=== PATIENT | female | born 1965 | race American Indian/Alaskan Native ===

== ENCOUNTER 2016-07-20 16:34 | Emergency (ER) | payer MEDICAID ==
[2016-07-20 16:53] VITALS: BP 141/91
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
[2016-07-20] MEDS ORDERED: TYLENOL PO ONE (18:11)
[2016-07-20 19:12] LABS: Hematocrit 42.9 % (30.3-42.9); Hemoglobin 14.3 gm/dl (10.1-14.3); Mean Corpuscular HGB Conc 33 % (30-34); Mean Corpuscular Hemoglobin 28 pg (28-32); Mean Corpuscular Volume 84 fl (79-97); Platelet Count 236 K/mm3 (140-440); Red Blood Count 5.14 M/mm3 (3.65-5.03); Red Cell Distribution Width 15.8 % (13.2-15.2); White Blood Count 12.2 K/mm3 (4.5-11.0)
[2016-07-20 19:35] LABS: Alanine Aminotransferase 17 units/L (7-56); Albumin 4.3 g/dL (3.9-5); Alkaline Phosphatase 80 units/L (35-129); Anion Gap 20 mmol/L; BUN/Creatinine Ratio 17.27; Bilirubin,Total 0.2 mg/dL (0.1-1.2); Blood Urea Nitrogen 19 mg/dL (7-17); Calcium 9.4 mg/dL (8.4-10.2); Carbon Dioxide 25 mmol/L (22-30); Chloride 95.6 mmol/L (98-107); Glucose 104 mg/dL (65-100); Potassium 3.8 mmol/L (3.6-5.0); Sodium 137 mmol/L (137-145); Total Protein 8.6 g/dL (6.3-8.2)
[2016-07-20 19:44] LABS: Bilirubin,Urine NEG (Negative); Blood,Urine SM (Negative); Ketones,Urine NEG (Negative); Leukocyte Esterase,Urine NEG (Negative); Mucus,Urine FEW /HPF; Nitrite,Urine NEG (Negative); Protein,Urine <15 mg/dL mg/dL (Negative); Urobilinogen,Urine < 2.0 mg/dL (<2.0)
[2016-07-20] MEDS ORDERED: TORADOL IM ONE (21:23)
[2016-07-20] MEDS ORDERED: DILAUDID IM ONE (21:23)
[2016-07-20] MEDS ORDERED: ZOFRAN IM ONE (21:23)
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
[2016-07-20] MEDS ORDERED: TYLENOL ONE (21:48)
== END 2016-07-20 22:30 | disposition home or self-care (01) ==
LOC: ED 16:34
DX: I10 Essential (primary) hypertension (principal); G43.909 Migraine, unspecified, not intractable, without status migrainosus; M54.5 Low back pain; G89.29 Other chronic pain; E78.00 Pure hypercholesterolemia, unspecified; Z87.891 Personal history of nicotine dependence; Z98.51 Tubal ligation status
CPT/HCPCS: 36415; 80053; 81001; 85027; 96372; 99283; J1170; J1885; J2405

== ENCOUNTER 2017-02-20 09:54 | Emergency (ER) | payer MEDICAID ==
[2017-02-20 10:08] VITALS: BP 151/69
[2017-02-20] MEDS ORDERED: TORADOL IM ONE (12:16)
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
[2017-02-20 12:49] LABS: Bacteria,Urine 1+ /HPF (Negative); Bilirubin,Urine NEG (Negative); Blood,Urine NEG (Negative); Ketones,Urine NEG (Negative); Leukocyte Esterase,Urine NEG (Negative); Mucus,Urine FEW /HPF; Nitrite,Urine NEG (Negative); Protein,Urine <15 mg/dL mg/dL (Negative); Urobilinogen,Urine < 2.0 mg/dL (<2.0)
== END 2017-02-20 13:23 | disposition home or self-care (01) ==
LOC: ED 09:54
DX: S39.012A Strain of muscle, fascia and tendon of lower back, initial encounter (principal); I10 Essential (primary) hypertension; G43.909 Migraine, unspecified, not intractable, without status migrainosus; E78.00 Pure hypercholesterolemia, unspecified; F17.200 Nicotine dependence, unspecified, uncomplicated
CPT/HCPCS: 81001; 96372; 99283; J1885

== ENCOUNTER 2022-01-05 19:32 | Inpatient (IN) | payer MEDICAID ==
--- NOTE | 2022-01-05 20:25 | Event Note ---
Date: 01/05/22 Medical screening examination note 56-year-old female, with a body mass index of 44, who is not COVID-19 vaccinated, presenting with painless shortness of breath. She has chronic loss of taste and smell. Nursing team reports the patient is hypoxic to 88%. She is saturating at 93 to 96% on 2 to 3 L of supplemental O2. 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 Detailed history and physical to be performed by oncoming provider Vital Signs 01/05/22 19:52 Temperature 98.7 F Pulse Rate 81 Respiratory 18 Rate Blood Pressure 140/63 O2 Sat by Pulse 92 Oximetry
--- NOTE | 2022-01-05 20:52 | Emergency Department Report ---
ED Shortness of Breath HPI - General Chief Complaint: Dyspnea/Respdistress Stated Complaint: SOB/BODY ACHES Time Seen by Provider: 01/05/22 20:35 Source: patient Mode of arrival: Ambulatory Limitations: No Limitations - History of Present Illness Initial Comments: 56-year-old -Iraqi female, smoker, complains of increased shortness of breath and wheezing. Reports she having yellow productive sputum. Has body aches. MD Complaint: shortness of breath, cough -: Gradual, days(s) (3) Radiation: back Quality: dull Consistency: intermittent Improves With: nothing, bronchodilators, upright position Worsens With: lying flat, exertion Context: smoke/fume exposure Associated Symptoms: cough, sputum production - Related Data Home Oxygen Therapy: No Previous Rx's Medication Instructions Recorded Last Taken Type Fluticasone Propionate [Flonase] 2 spray NS QDAY #1 spray.susp 10/20/13 Unknown Rx HYDROcodone/APAP 10-325 [[place] 1 each PO Q6HR PRN #14 tablet 10/20/13 Unknown Rx 10/325] hydroCHLOROthiazide [Hctz] 25 mg PO QDAY #30 tablet 10/20/13 Unknown Rx Butalbit/Acetamin/Caff/Codeine 1 cap PO Q8HR PRN #15 cap 02/16/16 Unknown Rx [Fioricet/Codeine 00-140-04-30] Gentamicin 0.3% Ophth Oint 1 applicatio OP Q4H #1 tube 02/16/16 Unknown Rx oxyCODONE /ACETAMINOPHEN [Percocet 1 tab PO Q6HR PRN #20 tablet 07/20/16 Unknown Rx 5/325 mg] Cyclobenzaprine [Flexeril] 10 mg PO TID PRN #15 tablet 02/20/17 Unknown Rx Ibuprofen [Motrin 600 MG tab] 600 mg PO Q8H PRN #30 tablet 02/20/17 Unknown Rx traMADoL [Ultram] 50 mg PO Q6HR PRN #6 tablet 02/20/17 Unknown Rx Ketorolac [Toradol] 10 mg PO Q6H PRN #20 tablet 04/29/18 Unknown Rx Allergies Allergy/AdvReac Type Severity Reaction Status Date / Time No Known Allergies Allergy Unverified 07/20/16 17:06 ED Review of Systems ROS: Stated complaint: SOB/BODY ACHES Other details as noted in HPI Constitutional: see HPI Eyes: as per HPI ENT: as per HPI Respiratory: see HPI, cough, orthopnea, shortness of breath, SOB with exertion Cardiovascular: as per HPI Endocrine: no symptoms reported Gastrointestinal: as per HPI Genitourinary: as per HPI Musculoskeletal: as per HPI ED Past Medical Hx - Past Medical History Hx Hypertension: Yes (pt not sure) Hx Arthritis: Yes Hx Headaches / Migraines: Yes Additional medical history: high cholesterol - Surgical History Past Surgical History?: Yes Additional Surgical History: tubal ligation - Social History Smoking Status: Current Every Day Smoker - Medications Home Medications: Home Medications Medication Instructions Recorded Confirmed Last Taken Type Fluticasone Propionate [Flonase] 2 spray NS QDAY #1 spray.susp 10/20/13 11/11/13 Unknown Rx HYDROcodone/APAP 10-325 [[place] 1 each PO Q6HR PRN #14 tablet 10/20/13 11/11/13 Unknown Rx 10/325] hydroCHLOROthiazide [Hctz] 25 mg PO QDAY #30 tablet 10/20/13 11/11/13 Unknown Rx Butalbit/Acetamin/Caff/Codeine 1 cap PO Q8HR PRN #15 cap 02/16/16 Unknown Rx [Fioricet/Codeine 96-047-40-30] Gentamicin 0.3% Ophth Oint 1 applicatio OP Q4H #1 tube 02/16/16 Unknown Rx oxyCODONE /ACETAMINOPHEN [Percocet 1 tab PO Q6HR PRN #20 tablet 07/20/16 Unknown Rx 5/325 mg] Cyclobenzaprine [Flexeril] 10 mg PO TID PRN #15 tablet 02/20/17 Unknown Rx Ibuprofen [Motrin 600 MG tab] 600 mg PO Q8H PRN #30 tablet 02/20/17 Unknown Rx traMADoL [Ultram] 50 mg PO Q6HR PRN #6 tablet 02/20/17 Unknown Rx Ketorolac [Toradol] 10 mg PO Q6H PRN #20 tablet 04/29/18 Unknown Rx ED Physical Exam - General Limitations: No Limitations General appearance: alert, in no apparent distress - Head Head exam: Present: atraumatic, normocephalic - Eye Eye exam: Present: normal appearance, PERRL - ENT ENT exam: Present: mucous membranes moist - Neck Neck exam: Present: normal inspection - Respiratory Respiratory exam: Present: normal lung sounds bilaterally, wheezes, rhonchi. Absent: respiratory distress - Cardiovascular Cardiovascular Exam: Present: regular rate, normal rhythm. Absent: systolic murmur, diastolic murmur, rubs, gallop - GI/Abdominal GI/Abdominal exam: Present: soft, normal bowel sounds - Extremities Exam Extremities exam: Present: normal inspection - Back Exam Back exam: Present: normal inspection - Neurological Exam Neurological exam: Present: alert, oriented X3 - Psychiatric Psychiatric exam: Present: normal affect, normal mood - Skin Skin exam: Present: warm, dry, intact, normal color. Absent: rash ED Course Vital Signs 01/05/22 01/05/22 01/05/22 19:52 20:15 20:20 Temperature 98.7 F Pulse Rate 81 79 Respiratory 18 19 28 H Rate Blood Pressure 140/63 O2 Sat by Pulse 92 93 94 Oximetry 01/05/22 01/05/22 01/05/22 20:30 20:45 21:00 Temperature Pulse Rate 76 73 80 Respiratory 19 16 19 Rate Blood Pressure 127/70 126/61 110/64 O2 Sat by Pulse 90 95 88 Oximetry ED Medical Decision Making - Lab Data Result diagrams: 01/05/22 20:34 01/05/22 20:34 Critical care attestation.: If time is entered above; I have spent that time in minutes in the direct care of this critically ill patient, excluding procedure time. ED Disposition Clinical Impression: COPD exacerbation Pneumonia Qualifiers: Pneumonia type: due to unspecified organism Laterality: bilateral Lung location: unspecified part of lung Qualified Code(s): J18.9 - Pneumonia, unspecified organism Disposition: [address] [place] [address] Is pt being admited?: Yes Condition: Serious Instructions: Bacterial Pneumonia (ED), Chronic Obstructive Pulmonary Disease (ED)
--- NOTE | 2022-01-05 21:12 | XRay Report ---
CHEST 1 VIEW 01/05/2022 8:56 PM INDICATION / CLINICAL INFORMATION: COUGH. COMPARISON: 04/29/2018 FINDINGS: SUPPORT DEVICES: None. HEART / MEDIASTINUM: No significant abnormality. LUNGS / PLEURA: Patchy airspace opacities in bilateral lower lobes. No pneumothorax. ADDITIONAL FINDINGS: No significant additional findings. IMPRESSION: 1. Airspace opacities in bilateral lobe suggesting infectious process. Signer Name: David Ferrer DO Signed: 01/05/2022 9:08 PM Workstation Name: [id number]
[2022-01-05 21:25] LABS: Alanine Aminotransferase 11 units/L (7-56); Albumin 3.2 g/dL (3.9-5); BUN/Creatinine Ratio 16; Blood Urea Nitrogen 16 mg/dL (7-17); Calcium 8.7 mg/dL (8.4-10.2); Hemolysis Index 5
[2022-01-05 22:02] LABS: Basophils # (Auto) 0.1 K/mm3 (0.0-0.1); Basophils % (Auto) 0.4 % (0.0-1.8); Eosinophils # (Auto) 0.1 K/mm3 (0.0-0.4); Eosinophils % (Auto) 1.2 % (0.0-4.3); Hematocrit 32.4 % (30.3-42.9); Lymphocytes # (Auto) 1.7 K/mm3 (1.2-5.4); Lymphocytes % (Auto) 14.8 % (13.4-35.0); Mean Corpuscular HGB Conc 31 % (30-34); Mean Corpuscular Volume 82 fl (79-97); Monocytes # (Auto) 0.7 K/mm3 (0.0-0.8); Monocytes % (Auto) 6.2 % (0.0-7.3); Platelet Count 316 K/mm3 (140-440); Red Blood Count 3.97 M/mm3 (3.65-5.03); Red Cell Distribution Width 17.7 % (13.2-15.2)
[2022-01-05 22:42] LABS: INR 1.01 (0.87-1.13)
[2022-01-05] MEDS ORDERED: cefTRIAXone/NS 1 GM/50 ML 1 GM/50 ML BAG IV ONE (22:50)
[2022-01-05] MEDS ORDERED: AZITHROMYCIN/NS 500 MG/250 ML 500 MG/250 ML BAG IV ONE (22:51)
[2022-01-06] MEDS ORDERED: ACETAMINOPHEN 325 MG TAB PO PRN (02:16)
[2022-01-06] MEDS ORDERED: ALBUTEROL 2.5 MG/3 ML NEBU IH PRN ×2 (02:16→09:51)
[2022-01-06] MEDS ORDERED: ONDANSETRON 4 MG/2 ML INJ IV PRN (02:16)
[2022-01-06] MEDS ORDERED: CYCLOBENZAPRINE 10 MG TAB PO PRN (02:18)
--- NOTE | 2022-01-06 02:24 | History and Physical Report ---
History of Present Illness Date of examination: 01/06/22 Date of admission: 01/06/22 Chief complaint: Shortness of breath Coughing History of present illness: 56-year-old -Ivorian female with history of COPD and tobacco abuse was brought to the emergency room because of increased shortness of breath and wheezing. Patient also complaining of yellow productive sputum. Patient has body ache In the emergency room patient WBC is 11.6 and chest x-ray shows airspace opacities in the bilateral lobe suggesting infectious process. We are going to admit the patient we will put the patient on neb treatment, antibiotic with and steroid Past History Past Medical History: arthritis, COPD, hypertension, hyperlipidemia, other (Migraine headache) Past Surgical History: Other (Tubal ligation) Social history: smoking Family history: hypertension Medications and Allergies Allergies Allergy/AdvReac Type Severity Reaction Status Date / Time No Known Allergies Allergy Unverified 07/20/16 17:06 Home Medications Medication Instructions Recorded Confirmed Last Taken Type Fluticasone Propionate [Flonase] 2 spray NS QDAY #1 spray.susp 10/20/13 11/11/13 Unknown Rx HYDROcodone/APAP 10-325 [[place] 1 each PO Q6HR PRN #14 tablet 10/20/13 11/11/13 Unknown Rx 10/325] hydroCHLOROthiazide [Hctz] 25 mg PO QDAY #30 tablet 10/20/13 11/11/13 Unknown Rx Butalbit/Acetamin/Caff/Codeine 1 cap PO Q8HR PRN #15 cap 02/16/16 Unknown Rx [Fioricet/Codeine 83-841-00-30] Gentamicin 0.3% Ophth Oint 1 applicatio OP Q4H #1 tube 02/16/16 Unknown Rx oxyCODONE /ACETAMINOPHEN [Percocet 1 tab PO Q6HR PRN #20 tablet 07/20/16 Unknown Rx 5/325 mg] Cyclobenzaprine [Flexeril] 10 mg PO TID PRN #15 tablet 02/20/17 Unknown Rx Ibuprofen [Motrin 600 MG tab] 600 mg PO Q8H PRN #30 tablet 02/20/17 Unknown Rx traMADoL [Ultram] 50 mg PO Q6HR PRN #6 tablet 02/20/17 Unknown Rx Ketorolac [Toradol] 10 mg PO Q6H PRN #20 tablet 04/29/18 Unknown Rx Review of Systems All systems: negative Respiratory: cough, cough with sputum, shortness of breath, dyspnea on exertion, other (Body ache) Exam - Constitutional Vitals: Temp Pulse Resp BP Pulse Ox 98.7 F 81 26 H 68/40 86 01/05/22 19:52 01/05/22 23:16 01/05/22 23:16 01/06/22 02:01 01/06/22 02:01 General appearance: Present: no acute distress, well-nourished - EENT Eyes: Present: PERRL ENT: hearing intact, clear oral mucosa - Neck Neck: Present: supple, normal ROM - Respiratory Respiratory effort: normal Respiratory: bilateral: CTA - Cardiovascular Heart Sounds: Present: S1 & S2. Absent: rub, click - Extremities Extremities: pulses symmetrical, No edema Peripheral Pulses: within normal limits - Abdominal General gastrointestinal: Present: soft, non-tender, non-distended, normal bowel sounds Female genitourinary: Present: normal - Integumentary Integumentary: Present: clear, warm, dry - Musculoskeletal Musculoskeletal: gait normal, strength equal bilaterally - Psychiatric Psychiatric: appropriate mood/affect, intact judgment & insight - Neurologic Neurologic: CNII-XII intact, moves all extremities HEART Score - HEART Score Troponin: Troponin T < 0.010 ng/mL (0.00-0.029) 01/05/22 20:34 Results - Labs CBC & Chem 7: 01/05/22 20:34 01/05/22 20:34 Labs: Laboratory Last Values WBC 11.6 K/mm3 (4.5-11.0) H 01/05/22 20:34 RBC 3.97 M/mm3 (3.65-5.03) 01/05/22 20:34 Hgb 10.0 gm/dl (10.1-14.3) L 01/05/22 20:34 Hct 32.4 % (30.3-42.9) 01/05/22 20:34 MCV 82 fl (79-97) 01/05/22 20:34 MCH 25 pg (28-32) L 01/05/22 20:34 MCHC 31 % (30-34) 01/05/22 20:34 RDW 17.7 % (13.2-15.2) H 01/05/22 20:34 Plt Count 316 K/mm3 (140-440) 01/05/22 20:34 Lymph % (Auto) 14.8 % (13.4-35.0) 01/05/22 20:34 [place] % (Auto) 6.2 % (0.0-7.3) 01/05/22 20:34 Eos % (Auto) 1.2 % (0.0-4.3) 01/05/22 20:34 Baso % (Auto) 0.4 % (0.0-1.8) 01/05/22 20:34 Lymph # (Auto) 1.7 K/mm3 (1.2-5.4) 01/05/22 20:34 [place] # (Auto) 0.7 K/mm3 (0.0-0.8) 01/05/22 20:34 Eos # (Auto) 0.1 K/mm3 (0.0-0.4) 01/05/22 20:34 Baso # (Auto) 0.1 K/mm3 (0.0-0.1) 01/05/22 20:34 Seg Neutrophils % 77.4 % (40.0-70.0) H 01/05/22 20:34 Seg Neutrophils # 9.0 K/mm3 (1.8-7.7) H 01/05/22 20:34 PT 14.4 Sec. (12.2-14.9) 01/05/22 20:34 INR 1.01 (0.87-1.13) 01/05/22 20:34 Sodium 140 mmol/L (137-145) 01/05/22 20:34 Potassium 3.9 mmol/L (3.6-5.0) 01/05/22 20:34 Chloride 100.5 mmol/L (98-107) 01/05/22 20:34 Carbon Dioxide 26 mmol/L (22-30) 01/05/22 20:34 Anion Gap 17 mmol/L 01/05/22 20:34 BUN 16 mg/dL (7-17) 01/05/22 20:34 Creatinine 1.0 mg/dL (0.6-1.2) 01/05/22 20:34 Estimated GFR > 60 ml/min 01/05/22 20:34 BUN/Creatinine Ratio 16 % 01/05/22 20:34 Glucose 112 mg/dL (65-100) H 01/05/22 20:34 Calcium 8.7 mg/dL (8.4-10.2) 01/05/22 20:34 Magnesium 2.10 mg/dL (1.7-2.3) 01/05/22 20:34 Total Bilirubin 0.50 mg/dL (0.1-1.2) 01/05/22 20:34 AST 9 units/L (5-40) 01/05/22 20:34 ALT 11 units/L (7-56) 01/05/22 20:34 Alkaline Phosphatase 74 units/L (35-129) 01/05/22 20:34 Total Creatine Kinase 48 units/L (30-135) 01/05/22 20:34 Troponin T < 0.010 ng/mL (0.00-0.029) 01/05/22 20:34 NT-Pro-B Natriuret Pep 337.0 pg/mL (0-900) 01/05/22 20:34 Total Protein 7.2 g/dL (6.3-8.2) 01/05/22 20:34 Albumin 3.2 g/dL (3.9-5) L 01/05/22 20:34 Albumin/Globulin Ratio 0.8 % 01/05/22 20:34 - Imaging and Cardiology Chest x-ray: report reviewed Assessment and Plan VTE prophylaxis?: Chemical Plan of care discussed with patient/family: Yes - Patient Problems (1) Acute exacerbation of chronic obstructive pulmonary disease Current Visit: Yes Status: Acute Plan to address problem: Admit the patient to the medical floor. Oxygen by nasal cannula 3 L/min. DuoNeb by nebulizer every 4 hours albuterol via nebulizer every 4 hours as needed. Prednisone 40 mg p.o. daily. Continue home medication (2) Pneumonia Current Visit: Yes Status: Acute Plan to address problem: Rocephin 2 g IV daily. Zithromax 500 mg p.o. daily. Blood cultures sputum culture. Recheck CBC BMP in the morning (3) Tobacco abuse Current Visit: Yes Status: Acute Plan to address problem: We counseled the patient regarding quitting smoking. We put the patient on nicotine patch (4) Hypertension Current Visit: Yes Status: Acute Plan to address problem: Hydrochlorothiazide 25 mg p.o. daily. We will continue the home medication (5) High cholesterol Current Visit: Yes Status: Acute Plan to address problem: We will continue the home medication. We will recheck the lipid panel (6) DVT prophylaxis Current Visit: Yes Status: Acute Plan to address problem: Heparin 5000 units subcu every 12 hours for DVT prophylaxis. Pepcid 20 mg p.o. twice daily for GI prophylaxis. Patient is a full code
[2022-01-06] MEDS: MORPHINE 2 MG/1 ML INJ IV PRN ×2 (03:59→06:52)
[2022-01-06] MEDS ORDERED: IPRATROPIUM/ALBUTEROL SULFATE 3 ML AMPUL.NEB IH SCH (08:00)
--- NOTE | 2022-01-06 08:24 | Progress Note ---
Assessment and Plan Assessment and plan: VTE prophylaxis?: Chemical Plan of care discussed with patient/family: Yes Assessment and plan --Acute exacerbation of chronic obstructive pulmonary disease Oxygen by nasal cannula 3 L/min. Titrate O2 sats to more than 90% Nebulizers, IV steroids, IV antibiotics, inhalation steroids, home O2 evaluation prior to discharge Pulmonary consult if needed --Acute hypoxic respiratory failure/ requiring supplemental oxygen; present on admission in ED patient's O2 sat was 88% room air improved to 93 to 96% on 2 to 3 L of supplemental oxygen Secondary to acute COPD exacerbation, bilateral pneumonia as well as obesity hypoventilation syndrome Supplemental oxygen, titrate O2 sats to more than 90%, treat the underlying cause --Bilateral pneumonia community-acquired, present on admission Rocephin 2 g IV daily. Zithromax 500 mg p.o. daily. Blood cultures sputum culture. Recheck CBC BMP in the morning Chest x-ray airspace opacities in bilateral lobes suggesting infectious process --Obesity hypoventilation syndrome; Oxygen titrate O2 sats to more than 90%, BiPAP as needed Patient needs outpatient sleep studies to rule out obstructive sleep apnea And for the need of CPAP/BiPAP at night --High suspicion for COVID/PUI Contact and droplet isolation, oxygen nasal cannula, henriquez PCR test -- Ongoing tobacco abuse Smoking cessation counseling Advised nicotine patch as needed Counseled and strongly advised to quit tobacco use and consider nicotine patch Risks and sequelae of long-term tobacco use discussed with the patient She verbalized understanding Spent 15 minutes --Hypertension/moderate control; Continue current antihypertensives As needed hydralazine -- Dyslipidemia: Continue lipid-lowering medication, Low-cholesterol diet --Moderate protein calorie malnutrition/hypoalbuminemia Patient's albumin is 3.2, supportive care, nutrition consult --Morbid obesity BMI 44.1; Patient needs lifestyle changes, Dietary modification, exercise as tolerated and weight reduction Patient will benefit from outpatient bariatric surgical evaluation for weight reduction program when medically stable --Full CODE STATUS --DVT/GI prophylaxis Heparin 5000 units subcu every 12 hours Pepcid 20 mg p.o. twice daily --Advance care planning +30 minutes; -Discussed with patient her condition, I discussed the tests and reports -Discussed with the patient treatment plan, smoking cessation and weight reduction. -I also discussed with the patient the need for sleep study at [facility] as outpatient to rule out obstructive sleep apnea, and the need for CPAP/BiPAP at night -I discussed with the patient the need for oxygen, home O2 evaluation at the time of discharge Also compliance with medications diet and follow-up visits. Patient verbalized understanding, and agreed to cooperate -- Preventive health care counseling +32 minutes Smoking cessation counseling, advised nicotine patch Discussed sequelae of long-term tobacco use explained to the patient She had many questions answered all of them Patient was also advised diet modification, lifestyle changes, exercise as tolerated and weight reduction When she is medically stable and has tolerated I also explained to the patient the benefit of seeing bariatric surgeon as outpatient to discuss the options of weight reduction program When she is medically stable, I addressed patient's concerns --Prolonged inpatient care 35 minutes Closely monitor the patient and adjust management as needed Plan of care reviewed with the patient and her nurse History Interval history: I have seen and examined the patient at the bedside this morning Patient's chart, current medication list, tests and reports reviewed Admitted with acute hypoxic respiratory failure requiring supplemental oxygen And COPD exacerbation on 4 L of nasal cannula oxygen Patient still continues to have worsening shortness of breath and chest discomfort and congestion In mild distress, vital signs reviewed Patient is morbidly obese with BMI of 44.1 Hospitalist Physical - Constitutional Vitals: Temp Pulse Resp BP Pulse Ox 98.6 F 76 20 151/85 93 01/06/22 03:12 01/06/22 03:12 01/06/22 03:12 01/06/22 03:12 01/06/22 03:12 General appearance: Present: mild distress (Morbidly obese), well-nourished, obese - EENT Eyes: Present: PERRL, EOM intact - Neck Neck: Present: supple, normal ROM - Respiratory Respiratory effort: normal Respiratory: bilateral: diminished, negative: rales, rhonchi, wheezing - Cardiovascular Rhythm: regular Heart Sounds: Present: S1 & S2 - Extremities Extremities: no ischemia, No edema - Abdominal General gastrointestinal: soft, non-tender, non-distended, normal bowel sounds - Integumentary Integumentary: Present: clear, warm - Psychiatric Psychiatric: appropriate mood/affect, cooperative - Neurologic Neurologic: CNII-XII intact, moves all extremities HEART Score - HEART Score Troponin: Troponin T < 0.010 ng/mL (0.00-0.029) 01/05/22 20:34 Results - Labs CBC & Chem 7: 01/05/22 20:34 01/05/22 20:34 Labs: Laboratory Last Values WBC 11.6 K/mm3 (4.5-11.0) H 01/05/22 20:34 RBC 3.97 M/mm3 (3.65-5.03) 01/05/22 20:34 Hgb 10.0 gm/dl (10.1-14.3) L 01/05/22: Hct 32.4 % (30.3-42.9) 01/05/22 20: MCV 82 fl (79-97) 01/05/22 20: MCH 25 pg (28-32) L 01/05/22: MCHC 31 % (30-34) 01/05/22: RDW 17.7 % (13.2-15.2) H 01/05/22 20:34 Plt Count 316 K/mm3 (140-440) 01/05/22 20: Lymph % (Auto) 14.8 % (13.4-35.0) 01/05/22 20:34 [place] % (Auto) 6.2 % (0.0-7.3) 01/05/22: Eos % (Auto) 1.2 % (0.0-4.3) 01/05/22: Baso % (Auto) 0.4 % (0.0-1.8) 01/05/22 20: Lymph # (Auto) 1.7 K/mm3 (1.2-5.4) 01/05/22: [place] # (Auto) 0.7 K/mm3 (0.0-0.8) 01/05/22 20: Eos # (Auto) 0.1 K/mm3 (0.0-0.4) 01/05/22: Baso # (Auto) 0.1 K/mm3 (0.0-0.1) 01/05/22: Seg Neutrophils % 77.4 % (40.0-70.0) H 01/05/22 20: Seg Neutrophils # 9.0 K/mm3 (1.8-7.7) H 01/05/22 20:34 PT 14.4 Sec. (12.2-14.9) 01/05/22 20:34 INR 1.01 (0.87-1.13) 01/05/22 20:34 Sodium 140 mmol/L (137-145) 01/05/22 20:34 Potassium 3.9 mmol/L (3.6-5.0) 01/05/22 20:34 Chloride 100.5 mmol/L (98-107) 01/05/22 20:34 Carbon Dioxide 26 mmol/L (22-30) 01/05/22 20:34 Anion Gap 17 mmol/L 01/05/22 20:34 BUN 16 mg/dL (7-17) 01/05/22 20:34 Creatinine 1.0 mg/dL (0.6-1.2) 01/05/22 20:34 Estimated GFR > 60 ml/min 01/05/22 20:34 BUN/Creatinine Ratio 16 % 01/05/22 20:34 Glucose 112 mg/dL (65-100) H 01/05/22 20:34 Calcium 8.7 mg/dL (8.4-10.2) 01/05/22 20:34 Magnesium 2.10 mg/dL (1.7-2.3) 01/05/22 20:34 Total Bilirubin 0.50 mg/dL (0.1-1.2) 01/05/22 20:34 AST 9 units/L (5-40) 01/05/22 20:34 ALT 11 units/L (7-56) 01/05/22 20:34 Alkaline Phosphatase 74 units/L (35-129) 01/05/22 20:34 Total Creatine Kinase 48 units/L (30-135) 01/05/22 20:34 Troponin T < 0.010 ng/mL (0.00-0.029) 01/05/22 20:34 NT-Pro-B Natriuret Pep 337.0 pg/mL (0-900) 01/05/22 20:34 Total Protein 7.2 g/dL (6.3-8.2) 01/05/22 20:34 Albumin 3.2 g/dL (3.9-5) L 01/05/22 20:34 Albumin/Globulin Ratio 0.8 % 01/05/22 20:34 Active Medications - Current Medications Current Medications: Generic Name Dose Route Start Last Admin Trade Name Freq PRN Reason Stop Dose Admin Acetaminophen 650 mg 01/06/22 02:16 Acetaminophen 325 Mg Tab PO Q4H PRN Pain MILD(1-3)/Fever >100.5/FORDE Albuterol 2.5 mg 01/06/22 02:16 Albuterol 2.5 Mg/3 Ml Nebu IH Q3HRT PRN Shortness Of Breath Albuterol/Ipratropium 1 ampul 01/06/22 08:00 Ipratropium/Albuterol Sulfate 3 Ml Ampul.Neb IH Q6HRT [facility] Azithromycin 500 mg 01/06/22 10:00 Azithromycin 250 Mg Tab PO QDAY [facility] Protocol Cyclobenzaprine HCl 10 mg 01/06/22 02:18 Cyclobenzaprine 10 Mg Tab PO TID PRN Muscle Spasm Famotidine 20 mg 01/06/22 10:00 Famotidine 20 Mg Tab PO BID [facility] Fluticasone Propionate 100 mcg 01/06/22 10:00 Fluticasone Propionate Nasal [place] 16 Gm NS QDAY [facility] Gentamicin Sulfate 1 applic 01/06/22 06:00 Gentamicin 0.3% Ophth Oint 3.5 Gm OD Q4HR [facility] Heparin Sodium (Porcine) 5,000 unit 01/06/22 10:00 Heparin 5,000 Unit/1 Ml Vial SUB-Q Q12HR [facility] Hydrochlorothiazide 25 mg 01/06/22 10:00 Hydrochlorothiazide 25 Mg Tab PO QDAY [facility] Ceftriaxone Sodium 2 gm in 100 mls @ 200 mls/hr 01/06/22 10:00 Rocephin/Ns 2 Gm/100 Ml IV Q24H [facility] Protocol Miscellaneous Medication 1 cap 01/06/22 02:18 Butalbit/Acetamin/Caff/Codeine [Fioricet/Codeine 14-869-88-30] PO Q8HR PRN Headache Morphine Sulfate 2 mg 01/06/22 02:16 01/06/22 06:52 Morphine 2 Mg/1 Ml Inj IV 2 mg Q4H PRN Administration Pain, Moderate (4-6) Morphine Sulfate 4 mg 01/06/22 02:16 Morphine 4 Mg/1 Ml Inj IV Q4H PRN Pain , Severe (7-10) Nicotine 21 mg 01/06/22 10:00 Nicotine 21 Mg/24 Hr Patch TD QDAY [facility] Ondansetron HCl 4 mg 01/06/22 02:16 Ondansetron 4 Mg/2 Ml Inj IV Q8H PRN Nausea And Vomiting Prednisone 40 mg 01/06/22 10:00 Prednisone 20 Mg Tab PO QDAY [facility] Sodium Chloride 10 ml 01/06/22 10:00 Sodium Chloride 0.9% 10 Ml Flush Syringe IV BID [facility] Sodium Chloride 10 ml 01/06/22 02:16 Sodium Chloride 0.9% 10 Ml Flush Syringe IV PRN PRN LINE FLUSH Tramadol HCl 50 mg 01/06/22 02:18 Tramadol 50 Mg Tab PO Q6HR PRN Pain, Moderate (4-6)
[2022-01-06] MEDS ORDERED: predniSONE 20 MG TAB PO SCH (10:00)
[2022-01-06] MEDS: FLUTICASONE PROPIONATE NASAL SPRAY 16 GM NS SCH (11:00)
[2022-01-06] MEDS: hydroCHLOROthiazide 25 MG TAB PO SCH (11:01)
[2022-01-06] MEDS: HEPARIN 5,000 UNIT/1 ML VIAL SUB-Q SCH ×2 (11:01→22:58)
[2022-01-06] MEDS: MORPHINE 4 MG/1 ML INJ IV PRN ×2 (11:01→22:52)
[2022-01-06] MEDS: NICOTINE 21 MG/24 HR PATCH TD SCH (11:01)
[2022-01-06] MEDS: AZITHROMYCIN 250 MG TAB PO SCH (11:02)
[2022-01-06] MEDS: FAMOTIDINE 20 MG TAB PO SCH ×2 (11:02→22:56)
[2022-01-06] MEDS: IPRATROPIUM/ALBUTEROL SULFATE 3 ML AMPUL.NEB IH SCH ×2 (14:04→20:13)
[2022-01-06] MEDS: methylPREDNISolone Sod Succinate 40 MG/1 ML INJ IV SCH ×2 (15:25→22:55)
[2022-01-06] MEDS: GENTAMICIN 0.3% OPHTH OINT 3.5 GM OD SCH ×3 (15:55→23:00)
[2022-01-06] MEDS: cefTRIAXone/NS 2 GM/100 ML 2 GM/100 ML BAG IV SCH (16:27)
[2022-01-06] MEDS: BUDESONIDE 0.5 MG/2 ML NEBU IH SCH (20:13)
[2022-01-06] MEDS: ARFORMOTEROL 15 MCG/2 ML NEBU IH SCH (20:13)
[2022-01-07] MEDS: GENTAMICIN 0.3% OPHTH OINT 3.5 GM OD SCH ×6 (02:55→21:34)
[2022-01-07] MEDS: MORPHINE 4 MG/1 ML INJ IV PRN ×3 (04:42→18:04)
[2022-01-07] MEDS: methylPREDNISolone Sod Succinate 40 MG/1 ML INJ IV SCH ×3 (05:52→21:23)
[2022-01-07 07:59] LABS: Hematocrit 33.1 % (30.3-42.9); Hemoglobin 10.2 gm/dl (10.1-14.3); Mean Corpuscular HGB Conc 31 % (30-34); Mean Corpuscular Volume 82 fl (79-97); Platelet Count 309 K/mm3 (140-440); Red Blood Count 4.04 M/mm3 (3.65-5.03); Red Cell Distribution Width 18.1 % (13.2-15.2)
[2022-01-07] MEDS: ARFORMOTEROL 15 MCG/2 ML NEBU IH SCH ×2 (08:37→20:23)
[2022-01-07] MEDS: BUDESONIDE 0.5 MG/2 ML NEBU IH SCH ×2 (08:37→20:23)
[2022-01-07] MEDS: IPRATROPIUM/ALBUTEROL SULFATE 3 ML AMPUL.NEB IH SCH ×3 (08:38→20:23)
[2022-01-07 09:18] LABS: BUN/Creatinine Ratio 15; Blood Urea Nitrogen 12 mg/dL (7-17); Calcium 9.8 mg/dL (8.4-10.2); Hemolysis Index 0
[2022-01-07] MEDS: AZITHROMYCIN 250 MG TAB PO SCH (10:55)
[2022-01-07] MEDS: FAMOTIDINE 20 MG TAB PO SCH ×2 (10:55→21:23)
[2022-01-07] MEDS: NICOTINE 21 MG/24 HR PATCH TD SCH (10:56)
[2022-01-07] MEDS: hydroCHLOROthiazide 25 MG TAB PO SCH (10:57)
[2022-01-07] MEDS: cefTRIAXone/NS 2 GM/100 ML 2 GM/100 ML BAG IV SCH (11:26)
[2022-01-07] MEDS: HEPARIN 5,000 UNIT/1 ML VIAL SUB-Q SCH ×2 (11:26→21:24)
[2022-01-07] MEDS: FLUTICASONE PROPIONATE NASAL SPRAY 16 GM NS SCH (12:10)
--- NOTE | 2022-01-07 12:46 | Progress Note ---
Assessment and Plan Assessment and plan: VTE prophylaxis?: Chemical Plan of care discussed with patient/family: Yes Assessment and plan --Acute exacerbation of chronic obstructive pulmonary disease Oxygen by nasal cannula 3 L/min. Titrate O2 sats to more than 90% Nebulizers, IV steroids, IV antibiotics, inhalation steroids, home O2 evaluation prior to discharge Pulmonary consult if needed --Acute hypoxic respiratory failure/ requiring supplemental oxygen; present on admission in ED patient's O2 sat was 88% room air improved to 93 to 96% on 2 to 3 L of supplemental oxygen Secondary to acute COPD exacerbation, bilateral pneumonia as well as obesity hypoventilation syndrome Supplemental oxygen, titrate O2 sats to more than 90%, treat the underlying cause --Bilateral pneumonia community-acquired, present on admission Rocephin 2 g IV daily. Zithromax 500 mg p.o. daily. Blood cultures sputum culture. Recheck CBC BMP in the morning Chest x-ray airspace opacities in bilateral lobes suggesting infectious process --Obesity hypoventilation syndrome; Oxygen titrate O2 sats to more than 90%, BiPAP as needed Patient needs outpatient sleep studies to rule out obstructive sleep apnea And for the need of CPAP/BiPAP at night --High suspicion for COVID/PUI Contact and droplet isolation, oxygen nasal cannula, henriquez PCR test -- Ongoing tobacco abuse Smoking cessation counseling Advised nicotine patch as needed Counseled and strongly advised to quit tobacco use and consider nicotine patch Risks and sequelae of long-term tobacco use discussed with the patient She verbalized understanding Spent 15 minutes --Hypertension/moderate control; Continue current antihypertensives As needed hydralazine -- Dyslipidemia: Continue lipid-lowering medication, Low-cholesterol diet --Moderate protein calorie malnutrition/hypoalbuminemia Patient's albumin is 3.2, supportive care, nutrition consult --Morbid obesity BMI 44.1; Patient needs lifestyle changes, Dietary modification, exercise as tolerated and weight reduction Patient will benefit from outpatient bariatric surgical evaluation for weight reduction program when medically stable --Full CODE STATUS --DVT/GI prophylaxis Heparin 5000 units subcu every 12 hours Pepcid 20 mg p.o. twice daily --Advance care planning +30 minutes; -Discussed with patient her condition, I discussed the tests and reports -Discussed with the patient treatment plan, smoking cessation and weight reduction. 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 Patient verbalized understanding, and agreed to cooperate -- Preventive health care counseling +32 minutes Smoking cessation counseling, advised nicotine patch Discussed sequelae of long-term tobacco use explained to the patient She had many questions answered all of them Patient was also advised diet modification, lifestyle changes, exercise as tolerated and weight reduction When she is medically stable and has tolerated I also explained to the patient the benefit of seeing bariatric surgeon as outpatient to discuss the options of weight reduction program When she is medically stable, I addressed patient's concerns --Prolonged inpatient care 35 minutes Closely monitor the patient and adjust management as needed Plan of care reviewed with the patient and her nurse History Interval history: I have seen and examined the patient at the bedside Patient's chart and medications reviewed Patient has some chest congestion and cough Mild shortness of breath on oxygen Vital signs noted Hospitalist Physical - Constitutional Vitals: Temp Pulse Resp BP Pulse Ox 97.4 F L 93 H 18 178/79 95 01/07/22 04:32 01/07/22 08:38 01/07/22 08:38 01/07/22 04:32 01/07/22 08:44 General appearance: Present: mild distress (Morbidly obese), well-nourished, obese - EENT Eyes: Present: PERRL, EOM intact - Neck Neck: Present: supple, normal ROM - Respiratory Respiratory effort: normal Respiratory: bilateral: diminished, negative: rales, rhonchi, wheezing - Cardiovascular Rhythm: regular Heart Sounds: Present: S1 & S2 - Extremities Extremities: no ischemia, No edema - Abdominal General gastrointestinal: soft, non-tender, non-distended, normal bowel sounds - Integumentary Integumentary: Present: clear, warm - Psychiatric Psychiatric: appropriate mood/affect, cooperative - Neurologic Neurologic: moves all extremities HEART Score - HEART Score Troponin: Troponin T < 0.010 ng/mL (0.00-0.029) 01/05/22 20:34 Results - Labs CBC & Chem 7: 01/07/22 06:55 01/07/22 06:55 Labs: Laboratory Last Values WBC 11.6 K/mm3 (4.5-11.0) H 01/07/22 06:55 RBC 4.04 M/mm3 (3.65-5.03) 01/07/22 06:55 Hgb 10.2 gm/dl (10.1-14.3) 01/07/22 06:55 Hct 33.1 % (30.3-42.9) 01/07/22 06:55 MCV 82 fl (79-97) 01/07/22 06:55 MCH 25 pg (28-32) L 01/07/22 06:55 MCHC 31 % (30-34) 01/07/22 06:55 RDW 18.1 % (13.2-15.2) H 01/07/22 06:55 Plt Count 309 K/mm3 (140-440) 01/07/22 06:55 Lymph % (Auto) 14.8 % (13.4-35.0) 01/05/22 20:34 [place] % (Auto) 6.2 % (0.0-7.3) 01/05/22 20:34 Eos % (Auto) 1.2 % (0.0-4.3) 01/05/22 20:34 Baso % (Auto) 0.4 % (0.0-1.8) 01/05/22 20:34 Lymph # (Auto) 1.7 K/mm3 (1.2-5.4) 01/05/22 20:34 [place] # (Auto) 0.7 K/mm3 (0.0-0.8) 01/05/22 20:34 Eos # (Auto) 0.1 K/mm3 (0.0-0.4) 01/05/22 20:34 Baso # (Auto) 0.1 K/mm3 (0.0-0.1) 01/05/22 20:34 Seg Neutrophils % [place] 01/07/22 06:55 Seg Neutrophils # 9.0 K/mm3 (1.8-7.7) H 01/05/22 20:34 PT 14.4 Sec. (12.2-14.9) 01/05/22 20:34 INR 1.01 (0.87-1.13) 01/05/22 20:34 Sodium 141 mmol/L (137-145) 01/07/22 06:55 Potassium 5.0 mmol/L (3.6-5.0) D 08/14/22 06:55 Chloride 97.2 mmol/L (98-107) L 01/07/22 06:55 Carbon Dioxide 24 mmol/L (22-30) 01/07/22 06:55 Anion Gap 25 mmol/L 01/07/22 06:55 BUN 12 mg/dL (7-17) 01/07/22 06:55 Creatinine 0.8 mg/dL (0.6-1.2) 01/07/22 06:55 Estimated GFR > 60 ml/min 01/07/22 06:55 BUN/Creatinine Ratio 15 % 01/07/22 06:55 Glucose 225 mg/dL (65-100) H 01/07/22 06:55 Calcium 9.8 mg/dL (8.4-10.2) 01/07/22 06:55 Magnesium 2.10 mg/dL (1.7-2.3) 01/05/22 20:34 Total Bilirubin 0.50 mg/dL (0.1-1.2) 01/05/22 20:34 AST 9 units/L (5-40) 01/05/22 20:34 ALT 11 units/L (7-56) 01/05/22 20:34 Alkaline Phosphatase 74 units/L (35-129) 01/05/22 20:34 Total Creatine Kinase 48 units/L (30-135) 01/05/22 20:34 Troponin T < 0.010 ng/mL (0.00-0.029) 01/05/22 20:34 NT-Pro-B Natriuret Pep 337.0 pg/mL (0-900) 01/05/22 20:34 Total Protein 7.2 g/dL (6.3-8.2) 01/05/22 20:34 Albumin 3.2 g/dL (3.9-5) L 01/05/22 20:34 Albumin/Globulin Ratio 0.8 % 01/05/22 20:34 Coronavirus (PCR) Negative (Negative) 01/06/22 08:25 Bowden/IV: Voiding Method Toilet Active Medications - Current Medications Current Medications: Generic Name Dose Route Start Last Admin Trade Name Freq PRN Reason Stop Dose Admin Acetaminophen 650 mg 01/06/22 02:16 Acetaminophen 325 Mg Tab PO Q4H PRN Pain MILD(1-3)/Fever >100.5/FORDE Albuterol 2.5 mg 01/06/22 09:51 Albuterol 2.5 Mg/3 Ml Nebu IH Q4HRT PRN Shortness Of Breath Albuterol/Ipratropium 1 ampul 01/06/22 14:00 01/07/22 08:38 Ipratropium/Albuterol Sulfate 3 Ml Ampul.Neb IH Not Given TIDRT JERALD Arformoterol Tartrate 15 mcg 01/06/22 20:00 01/07/22 08:37 Arformoterol 15 Mcg/2 Ml Nebu IH 15 mcg Q12HRT JERALD Administration Azithromycin 500 mg 01/06/22 10:00 01/07/22 10:55 Azithromycin 250 Mg Tab PO 500 mg QDAY JERALD Administration Protocol Budesonide 0.5 mg 01/06/22 20:00 01/07/22 08:37 Budesonide 0.5 Mg/2 Ml Nebu IH 0.5 mg Q12HRT JERALD Administration Cyclobenzaprine HCl 10 mg 01/06/22 02:18 Cyclobenzaprine 10 Mg Tab PO TID PRN Muscle Spasm Famotidine 20 mg 01/06/22 10:00 01/07/22 10:55 Famotidine 20 Mg Tab PO 20 mg BID JERALD Administration Fluticasone Propionate 100 mcg 01/06/22 10:00 01/07/22 12:10 Fluticasone Propionate Nasal [place] 16 Gm NS 100 mcg QDAY JERALD Administration Gentamicin Sulfate 1 applic 01/06/22 06:00 01/07/22 11:22 Gentamicin 0.3% Ophth Oint 3.5 Gm OD Not Given Q4HR [facility] Heparin Sodium (Porcine) 5,000 unit 01/06/22 10:00 01/07/22 11:26 Heparin 5,000 Unit/1 Ml Vial SUB-Q 5,000 unit Q12HR JERALD Administration Hydrochlorothiazide 25 mg 01/06/22 10:00 01/07/22 10:57 Hydrochlorothiazide 25 Mg Tab PO 25 mg QDAY JERALD Administration Ceftriaxone Sodium 2 gm in 100 mls @ 200 mls/hr 01/06/22 10:00 01/07/22 11:26 Rocephin/Ns 2 Gm/100 Ml IV 200 mls/hr Q24H JERALD Administration Protocol Methylprednisolone Sodium Succinate 40 mg 01/06/22 14:00 01/07/22 05:52 Methylprednisolone Sod Succinate 40 Mg/1 Ml Inj IV 40 mg Q8HR JERALD Administration Miscellaneous Medication 1 cap 01/06/22 02:18 Butalbit/Acetamin/Caff/Codeine [Fioricet/Codeine [id number]] PO Q8HR PRN Headache Morphine Sulfate 2 mg 01/06/22 02:16 01/06/22 06:52 Morphine 2 Mg/1 Ml Inj IV 2 mg Q4H PRN Administration Pain, Moderate (4-6) Morphine Sulfate 4 mg 01/06/22 02:16 01/07/22 10:56 Morphine 4 Mg/1 Ml Inj IV 4 mg Q4H PRN Administration Pain , Severe (7-10) Nicotine 21 mg 01/06/22 10:00 01/07/22 10:56 Nicotine 21 Mg/24 Hr Patch TD 21 mg QDAY JERALD Administration Ondansetron HCl 4 mg 01/06/22 02:16 Ondansetron 4 Mg/2 Ml Inj IV Q8H PRN Nausea And Vomiting Sodium Chloride 10 ml 01/06/22 10:00 01/07/22 11:27 Sodium Chloride 0.9% 10 Ml Flush Syringe IV 10 ml BID JERALD Administration Sodium Chloride 10 ml 01/06/22 02:16 Sodium Chloride 0.9% 10 Ml Flush Syringe IV PRN PRN LINE FLUSH Tramadol HCl 50 mg 01/06/22 02:18 Tramadol 50 Mg Tab PO Q6HR PRN Pain, Moderate (4-6)
--- NOTE | 2022-01-07 14:39 | Electrocardiograph Report ---
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
--- NOTE | 2022-01-07 14:41 | Electrocardiograph Report ---
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
[2022-01-07 16:33] LABS: Basophils % (Manual) 0 % (0.0-1.8); Total Cells Counted 100
[2022-01-07 16:34] LABS: Anisocytosis 2+; Platelet Estimate Consistent w Auto; Target Cells Few
[2022-01-07] MEDS ORDERED: FUROSEMIDE 40 MG/4 ML INJ IV ONE (19:28)
[2022-01-07] MEDS: traMADol 50 MG TAB PO PRN (21:23)
[2022-01-07] MEDS: BENZONATATE 100 MG CAP PO SCH (21:23)
[2022-01-08] MEDS: GENTAMICIN 0.3% OPHTH OINT 3.5 GM OD SCH ×6 (05:23→21:17)
[2022-01-08] MEDS: BENZONATATE 100 MG CAP PO SCH ×3 (05:55→21:34)
[2022-01-08] MEDS: methylPREDNISolone Sod Succinate 40 MG/1 ML INJ IV SCH ×3 (05:55→21:34)
[2022-01-08] MEDS: BUDESONIDE 0.5 MG/2 ML NEBU IH SCH ×2 (07:46→20:11)
[2022-01-08] MEDS: IPRATROPIUM/ALBUTEROL SULFATE 3 ML AMPUL.NEB IH SCH ×3 (07:46→20:11)
[2022-01-08] MEDS: ARFORMOTEROL 15 MCG/2 ML NEBU IH SCH ×2 (07:47→20:11)
[2022-01-08] MEDS: hydroCHLOROthiazide 25 MG TAB PO SCH (09:21)
[2022-01-08] MEDS: HEPARIN 5,000 UNIT/1 ML VIAL SUB-Q SCH ×2 (09:21→21:34)
[2022-01-08] MEDS: AZITHROMYCIN 250 MG TAB PO SCH (09:21)
[2022-01-08] MEDS: NICOTINE 21 MG/24 HR PATCH TD SCH (09:21)
[2022-01-08] MEDS: CETIRIZINE 10 MG TAB PO SCH (09:22)
[2022-01-08] MEDS: FAMOTIDINE 20 MG TAB PO SCH ×2 (09:22→21:34)
[2022-01-08] MEDS: FUROSEMIDE 40 MG/4 ML INJ IV SCH (09:22)
[2022-01-08] MEDS: traMADol 50 MG TAB PO PRN (09:22)
[2022-01-08] MEDS: FLUTICASONE PROPIONATE NASAL SPRAY 16 GM NS SCH (09:35)
[2022-01-08] MEDS: cefTRIAXone/NS 2 GM/100 ML 2 GM/100 ML BAG IV SCH (10:50)
[2022-01-08] MEDS: MORPHINE 2 MG/1 ML INJ IV PRN ×2 (12:05→21:43)
--- NOTE | 2022-01-08 20:29 | Progress Note ---
Assessment and Plan Assessment and plan: VTE prophylaxis?: Chemical Plan of care discussed with patient/family: Yes Assessment and plan --Acute exacerbation of chronic obstructive pulmonary disease Oxygen by nasal cannula 3 L/min. Titrate O2 sats to more than 90% Nebulizers, IV steroids, IV antibiotics, inhalation steroids, home O2 evaluation prior to discharge Pulmonary consult if needed --Acute hypoxic respiratory failure/ requiring supplemental oxygen; present on admission in ED patient's O2 sat was 88% room air improved to 93 to 96% on 2 to 3 L of supplemental oxygen Secondary to acute COPD exacerbation, bilateral pneumonia as well as obesity hypoventilation syndrome Supplemental oxygen, titrate O2 sats to more than 90%, treat the underlying cause --Bilateral pneumonia community-acquired, present on admission Rocephin 2 g IV daily. Zithromax 500 mg p.o. daily. Blood cultures sputum culture. Recheck CBC BMP in the morning Chest x-ray airspace opacities in bilateral lobes suggesting infectious process --Obesity hypoventilation syndrome; Oxygen titrate O2 sats to more than 90%, BiPAP as needed Patient needs outpatient sleep studies to rule out obstructive sleep apnea And for the need of CPAP/BiPAP at night --High suspicion for COVID/PUI Contact and droplet isolation, oxygen nasal cannula, henriquez PCR test -- Ongoing tobacco abuse Smoking cessation counseling Advised nicotine patch as needed Counseled and strongly advised to quit tobacco use and consider nicotine patch Risks and sequelae of long-term tobacco use discussed with the patient She verbalized understanding Spent 15 minutes --Hypertension/moderate control; Continue current antihypertensives As needed hydralazine -- Dyslipidemia: Continue lipid-lowering medication, Low-cholesterol diet --Moderate protein calorie malnutrition/hypoalbuminemia Patient's albumin is 3.2, supportive care, nutrition consult --Morbid obesity BMI 44.1; Patient needs lifestyle changes, Dietary modification, exercise as tolerated and weight reduction Patient will benefit from outpatient bariatric surgical evaluation for weight reduction program when medically stable --Full CODE STATUS --DVT/GI prophylaxis Heparin 5000 units subcu every 12 hours Pepcid 20 mg p.o. twice daily --Advance care planning +30 minutes; -Discussed with patient her condition, I discussed the tests and reports -Discussed with the patient treatment plan, smoking cessation and weight reduction. 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 Patient verbalized understanding, and agreed to cooperate -- Preventive health care counseling +32 minutes Smoking cessation counseling, advised nicotine patch Discussed sequelae of long-term tobacco use explained to the patient She had many questions answered all of them Patient was also advised diet modification, lifestyle changes, exercise as tolerated and weight reduction When she is medically stable and has tolerated I also explained to the patient the benefit of seeing bariatric surgeon as outpatient to discuss the options of weight reduction program When she is medically stable, I addressed patient's concerns 01/08/2022; continue current management Wean oxygen as tolerated, home O2 evaluation Smoking cessation counseling done Possible discharge in 1 to 2 days if stable History Interval history: I have seen and examined the patient at the bedside Patient's chart and medications reviewed No new events reported by the nursing Patient still has mild shortness of breath Vital signs noted Hospitalist Physical - Constitutional Vitals: Temp Pulse Resp BP Pulse Ox 98.5 F 88 18 155/67 93 01/08/22 18:22 01/08/22 20:00 01/08/22 20:00 01/08/22 18:22 01/08/22 20:13 General appearance: Present: mild distress (Morbidly obese), well-nourished, obese (Morbidly obese) - EENT Eyes: Present: PERRL, EOM intact - Neck Neck: Present: supple, normal ROM - Respiratory Respiratory effort: normal Respiratory: bilateral: diminished, rhonchi, negative: rales, wheezing - Cardiovascular Rhythm: regular Heart Sounds: Present: S1 & S2 - Extremities Extremities: no ischemia, No edema - Abdominal General gastrointestinal: soft, non-tender, non-distended, normal bowel sounds - Integumentary Integumentary: Present: clear, warm - Psychiatric Psychiatric: appropriate mood/affect, cooperative - Neurologic Neurologic: CNII-XII intact, moves all extremities HEART Score - HEART Score Troponin: Troponin T < 0.010 ng/mL (0.00-0.029) 01/05/22 20:34 Results - Labs CBC & Chem 7: 01/09/22 04:00 01/09/22 04:00 Labs: Laboratory Last Values WBC 11.6 K/mm3 (4.5-11.0) H 01/07/22 06:55 RBC 4.04 M/mm3 (3.65-5.03) 01/07/22 06:55 Hgb 10.2 gm/dl (10.1-14.3) 01/07/22 06:55 Hct 33.1 % (30.3-42.9) 01/07/22 06:55 MCV 82 fl (79-97) 01/07/22 06:55 MCH 25 pg (28-32) L 01/07/22 06:55 MCHC 31 % (30-34) 01/07/22 06:55 RDW 18.1 % (13.2-15.2) H 01/07/22 06:55 Plt Count 309 K/mm3 (140-440) 01/07/22 06:55 Lymph % (Auto) 14.8 % (13.4-35.0) 01/05/22 20:34 [place] % (Auto) 6.2 % (0.0-7.3) 01/05/22 20:34 Eos % (Auto) 1.2 % (0.0-4.3) 01/05/22 20:34 Baso % (Auto) 0.4 % (0.0-1.8) 01/05/22 20:34 Lymph # (Auto) 1.7 K/mm3 (1.2-5.4) 01/05/22 20:34 [place] # (Auto) 0.7 K/mm3 (0.0-0.8) 01/05/22 20:34 Eos # (Auto) 0.1 K/mm3 (0.0-0.4) 01/05/22 20:34 Baso # (Auto) 0.1 K/mm3 (0.0-0.1) 01/05/22 20:34 Add Manual Diff Complete 01/07/22 06:55 Total Counted 100 01/07/22 06:55 Seg Neutrophils % [employer] 01/07/22 06:55 Seg Neuts % (Manual) 93.0 % (40.0-70.0) H 01/07/22 06:55 Band Neutrophils % 0 % 01/07/22 06:55 Lymphocytes % (Manual) 3.0 % (13.4-35.0) L 01/07/22 06:55 Reactive Lymphs % (Man) 0 % 01/07/22 06:55 Monocytes % (Manual) 2.0 % (0.0-7.3) 01/07/22 06:55 Eosinophils % (Manual) 1.0 % (0.0-4.3) 01/07/22 06:55 Basophils % (Manual) 0 % (0.0-1.8) 01/07/22 06:55 Metamyelocytes % 1.0 % 01/07/22 06:55 Myelocytes % 0 % 01/07/22 06:55 Promyelocytes % 0 % 01/07/22 06:55 Blast Cells % 0 % 01/07/22 06:55 Nucleated RBC % Not Reportable 01/07/22 06:55 Seg Neutrophils # 9.0 K/mm3 (1.8-7.7) H 01/05/22 20:34 Seg Neutrophils # Man 10.8 K/mm3 (1.8-7.7) H 01/07/22 06:55 Band Neutrophils # 0.0 K/mm3 01/07/22 06:55 Lymphocytes # (Manual) 0.3 K/mm3 (1.2-5.4) L 01/07/22 06:55 Abs React Lymphs (Man) 0.0 K/mm3 01/07/22 06:55 Monocytes # (Manual) 0.2 K/mm3 (0.0-0.8) 01/07/22 06:55 Eosinophils # (Manual) 0.1 K/mm3 (0.0-0.4) 01/07/22 06:55 Basophils # (Manual) 0.0 K/mm3 (0.0-0.1) 01/07/22 06:55 Metamyelocytes # 0.1 K/mm3 01/07/22 06:55 Myelocytes # 0.0 K/mm3 01/07/22 06:55 Promyelocytes # 0.0 K/mm3 01/07/22 06:55 Blast Cells # 0.0 K/mm3 01/07/22 06:55 WBC Morphology Not Reportable 01/07/22 06:55 Hypersegmented Neuts Not Reportable 01/07/22 06:55 Hyposegmented Neuts Not Reportable 01/07/22 06:55 Hypogranular Neuts Not Reportable 01/07/22 06:55 Smudge Cells Not Reportable 01/07/22 06:55 Toxic Granulation Not Reportable 01/07/22 06:55 Toxic Vacuolation Not Reportable 01/07/22 06:55 Dohle Bodies Not Reportable 01/07/22 06:55 Pelger-Huet Anomaly Not Reportable 01/07/22 06:55 Lurdes Rods Not Reportable 01/07/22 06:55 Platelet Estimate Consistent w auto 01/07/22 06:55 Clumped Platelets Not Reportable 01/07/22 06:55 Plt Clumps, EDTA Not Reportable 01/07/22 06:55 Large Platelets Not Reportable 01/07/22 06:55 Giant Platelets Not Reportable 01/07/22 06:55 Platelet Satelliting Not Reportable 01/07/22 06:55 Plt Morphology Comment Not Reportable 01/07/22 06:55 RBC Morphology Not Reportable 01/07/22 06:55 Dimorphic RBCs Not Reportable 01/07/22 06:55 Polychromasia Not Reportable 01/07/22 06:55 Hypochromasia Not Reportable 01/07/22 06:55 Poikilocytosis Not Reportable 01/07/22 06:55 Anisocytosis 2+ 01/07/22 06:55 Microcytosis Not Reportable 01/07/22 06:55 Macrocytosis Not Reportable 01/07/22 06:55 Spherocytes Not Reportable 01/07/22 06:55 Pappenheimer Bodies Not Reportable 01/07/22 06:55 Sickle Cells Not Reportable 01/07/22 06:55 Target Cells Few 01/07/22 06:55 Tear Drop Cells Not Reportable 01/07/22 06:55 Ovalocytes Not Reportable 01/07/22 06:55 Helmet Cells Not Reportable 01/07/22 06:55 [place]-Perham Bodies Not Reportable 01/07/22 06:55 [place] Rings Not Reportable 01/07/22 06:55 Rochelle Cells Not Reportable 01/07/22 06:55 Bite Cells Not Reportable 01/07/22 06:55 Crenated Cell Not Reportable 01/07/22 06:55 Elliptocytes Not Reportable 01/07/22 06:55 Acanthocytes (Spur) Not Reportable 01/07/22 06:55 Rouleaux Not Reportable 01/07/22 06:55 Hemoglobin C Crystals Not Reportable 01/07/22 06:55 Schistocytes Not Reportable 01/07/22 06:55 Malaria parasites Not Reportable 01/07/22 06:55 Glenn Bodies Not Reportable 01/07/22 06:55 Hem Pathologist Commnt No 01/07/22 06:55 PT 14.4 Sec. (12.2-14.9) 01/05/22 20:34 INR 1.01 (0.87-1.13) 01/05/22 20:34 Sodium 141 mmol/L (137-145) 01/07/22 06:55 Potassium 5.0 mmol/L (3.6-5.0) D 01/07/22 06:55 Chloride 97.2 mmol/L (98-107) L 01/07/22 06:55 Carbon Dioxide 24 mmol/L (22-30) 01/07/22 06:55 Anion Gap 25 mmol/L 01/07/22 06:55 BUN 12 mg/dL (7-17) 01/07/22 06:55 Creatinine 0.8 mg/dL (0.6-1.2) 01/07/22 06:55 Estimated GFR > 60 ml/min 01/07/22 06:55 BUN/Creatinine Ratio 15 % 01/07/22 06:55 Glucose 225 mg/dL (65-100) H 01/07/22 06:55 Calcium 9.8 mg/dL (8.4-10.2) 01/07/22 06:55 Magnesium 2.10 mg/dL (1.7-2.3) 01/05/22 20:34 Total Bilirubin 0.50 mg/dL (0.1-1.2) 01/05/22 20:34 AST 9 units/L (5-40) 01/05/22 20:34 ALT 11 units/L (7-56) 01/05/22 20:34 Alkaline Phosphatase 74 units/L (35-129) 01/05/22 20:34 Total Creatine Kinase 48 units/L (30-135) 01/05/22 20:34 Troponin T < 0.010 ng/mL (0.00-0.029) 01/05/22 20:34 NT-Pro-B Natriuret Pep 337.0 pg/mL (0-900) 01/05/22 20:34 Total Protein 7.2 g/dL (6.3-8.2) 01/05/22 20:34 Albumin 3.2 g/dL (3.9-5) L 01/05/22 20:34 Albumin/Globulin Ratio 0.8 % 01/05/22 20:34 Coronavirus (PCR) Negative (Negative) 01/06/22 08:25 Microbiology: Microbiology 01/07/22 13:00 Peripheral/Venous Blood Culture - Preliminary NO GROWTH AFTER 24 HOURS 01/07/22 13:30 Peripheral/Venous Blood Culture - Preliminary NO GROWTH AFTER 24 HOURS Bowden/IV: Voiding Method Toilet Active Medications - Current Medications Current Medications: Generic Name Dose Route Start Last Admin Trade Name Freq PRN Reason Stop Dose Admin Acetaminophen 650 mg 01/06/22 02:16 Acetaminophen 325 Mg Tab PO Q4H PRN Pain MILD(1-3)/Fever >100.5/FORDE Albuterol 2.5 mg 01/06/22 09:51 Albuterol 2.5 Mg/3 Ml Nebu IH Q4HRT PRN Shortness Of Breath Albuterol/Ipratropium 1 ampul 01/06/22 14:00 01/08/22 20:11 Ipratropium/Albuterol Sulfate 3 Ml Ampul.Neb IH 1 ampul TIDRT JERALD Administration Arformoterol Tartrate 15 mcg 01/06/22 20:00 01/08/22 20:11 Arformoterol 15 Mcg/2 Ml Nebu IH 15 mcg Q12HRT JERALD Administration Azithromycin 500 mg 01/06/22 10:00 01/08/22 09:21 Azithromycin 250 Mg Tab PO 01/09/22 10:01 500 mg QDAY JERALD Administration Protocol Benzonatate 100 mg 01/07/22 22:00 01/08/22 13:52 Benzonatate 100 Mg Cap PO 100 mg Q8HR JERALD Administration Budesonide 0.5 mg 01/06/22 20:00 01/08/22 20:11 Budesonide 0.5 Mg/2 Ml Nebu IH 0.5 mg Q12HRT JERALD Administration Cetirizine HCl 10 mg 01/08/22 10:00 01/08/22 09:22 Cetirizine 10 Mg Tab PO 10 mg QDAY JERALD Administration Cyclobenzaprine HCl 10 mg 01/06/22 02:18 Cyclobenzaprine 10 Mg Tab PO TID PRN Muscle Spasm Famotidine 20 mg 01/06/22 10:00 01/08/22 09:22 Famotidine 20 Mg Tab PO 20 mg BID JERALD Administration Fluticasone Propionate 100 mcg 01/06/22 10:00 01/08/22 09:35 Fluticasone Propionate Nasal [place] 16 Gm NS 100 mcg QDAY JERALD Administration Furosemide 40 mg 01/08/22 10:00 01/08/22 09:22 Furosemide 40 Mg/4 Ml Inj IV 40 mg QDAY JERALD Administration Gentamicin Sulfate 1 applic 01/06/22 06:00 01/08/22 18:39 Gentamicin 0.3% Ophth Oint 3.5 Gm OD Not Given Q4HR JERALD Heparin Sodium (Porcine) 5,000 unit 01/06/22 10:00 01/08/22 09:21 Heparin 5,000 Unit/1 Ml Vial SUB-Q 5,000 unit Q12HR JERALD Administration Hydrochlorothiazide 25 mg 01/06/22 10:00 01/08/22 09:21 Hydrochlorothiazide 25 Mg Tab PO 25 mg QDAY JERALD Administration Ceftriaxone Sodium 2 gm in 100 mls @ 200 mls/hr 01/06/22 10:00 01/08/22 10:50 Rocephin/Ns 2 Gm/100 Ml IV 01/09/22 12:59 200 mls/hr Q24H JERALD Administration Protocol Methylprednisolone Sodium Succinate 40 mg 01/06/22 14:00 01/08/22 13:52 Methylprednisolone Sod Succinate 40 Mg/1 Ml Inj IV 40 mg Q8HR JERALD Administration Morphine Sulfate 2 mg 01/07/22 19:24 01/08/22 12:05 Morphine 2 Mg/1 Ml Inj IV 2 mg Q6H PRN Administration Pain, Moderate (4-6) Nicotine 21 mg 01/06/22 10:00 01/08/22 09:21 Nicotine 21 Mg/24 Hr Patch TD 21 mg QDAY JERALD Administration Ondansetron HCl 4 mg 01/06/22 02:16 Ondansetron 4 Mg/2 Ml Inj IV Q8H PRN Nausea And Vomiting Sodium Chloride 10 ml 01/06/22 10:00 01/08/22 09:23 Sodium Chloride 0.9% 10 Ml Flush Syringe IV 10 ml BID JERALD Administration Sodium Chloride 10 ml 01/06/22 02:16 Sodium Chloride 0.9% 10 Ml Flush Syringe IV PRN PRN LINE FLUSH Tramadol HCl 50 mg 01/06/22 02:18 01/08/22 09:22 Tramadol 50 Mg Tab PO 50 mg Q6HR PRN Administration Pain, Moderate (4-6)
[2022-01-09] MEDS: GENTAMICIN 0.3% OPHTH OINT 3.5 GM OD SCH ×2 (02:07→05:07)
[2022-01-09] MEDS: methylPREDNISolone Sod Succinate 40 MG/1 ML INJ IV SCH ×3 (05:07→23:01)
[2022-01-09] MEDS: BENZONATATE 100 MG CAP PO SCH ×3 (05:08→23:04)
[2022-01-09] MEDS: MORPHINE 2 MG/1 ML INJ IV PRN ×2 (05:13→18:33)
[2022-01-09 06:20] LABS: Basophils % (Auto) 0.1 % (0.0-1.8); Lymphocytes # (Auto) 0.9 K/mm3 (1.2-5.4); Lymphocytes % (Auto) 6.5 % (13.4-35.0); Mean Corpuscular HGB Conc 30 % (30-34); Mean Corpuscular Volume 82 fl (79-97); Monocytes % (Auto) 7.1 % (0.0-7.3); Platelet Count 372 K/mm3 (140-440); Red Cell Distribution Width 18.4 % (13.2-15.2)
[2022-01-09 06:28] LABS: Hematocrit 38.4 % (30.3-42.9); Hemoglobin 11.5 gm/dl (10.1-14.3)
[2022-01-09] MEDS: ARFORMOTEROL 15 MCG/2 ML NEBU IH SCH ×2 (07:54→20:29)
[2022-01-09] MEDS: BUDESONIDE 0.5 MG/2 ML NEBU IH SCH ×2 (07:54→20:29)
[2022-01-09] MEDS: IPRATROPIUM/ALBUTEROL SULFATE 3 ML AMPUL.NEB IH SCH ×3 (07:54→20:29)
[2022-01-09] MEDS: HEPARIN 5,000 UNIT/1 ML VIAL SUB-Q SCH ×2 (09:40→23:01)
[2022-01-09] MEDS: AZITHROMYCIN 250 MG TAB PO SCH (09:40)
[2022-01-09] MEDS: hydroCHLOROthiazide 25 MG TAB PO SCH (09:40)
[2022-01-09] MEDS: FUROSEMIDE 40 MG/4 ML INJ IV SCH (09:40)
[2022-01-09] MEDS: FAMOTIDINE 20 MG TAB PO SCH ×2 (09:41→23:01)
[2022-01-09] MEDS: CETIRIZINE 10 MG TAB PO SCH (09:41)
[2022-01-09] MEDS: NICOTINE 21 MG/24 HR PATCH TD SCH (09:41)
[2022-01-09] MEDS: FLUTICASONE PROPIONATE NASAL SPRAY 16 GM NS SCH (09:42)
--- NOTE | 2022-01-09 09:58 | Progress Note ---
Assessment and Plan 56 y/o AAF with SOB: A/P --Acute exacerbation of chronic obstructive pulmonary disease Oxygen by nasal cannula 3 L/min. Titrate O2 sats to more than 90% Nebulizers, IV steroids, IV antibiotics, inhalation steroids, home O2 evaluation prior to discharge Pulmonary consult if needed --Acute hypoxic respiratory failure/ requiring supplemental oxygen; present on admission in ED patient's O2 sat was 88% room air improved to 93 to 96% on 2 to 3 L of supplemental oxygen Secondary to acute COPD exacerbation, bilateral pneumonia as well as obesity hypoventilation syndrome Supplemental oxygen, titrate O2 sats to more than 90%, treat the underlying cause --Bilateral pneumonia community-acquired, present on admission Rocephin 2 g IV daily. Zithromax 500 mg p.o. daily. Blood cultures sputum culture. Recheck CBC BMP in the morning Chest x-ray airspace opacities in bilateral lobes suggesting infectious process --Obesity hypoventilation syndrome; Oxygen titrate O2 sats to more than 90%, BiPAP as needed Patient needs outpatient sleep studies to rule out obstructive sleep apnea And for the need of CPAP/BiPAP at night --High suspicion for COVID/PUI Contact and droplet isolation, oxygen nasal cannula, henriquez PCR test -- Ongoing tobacco abuse Smoking cessation counseling Advised nicotine patch as needed Counseled and strongly advised to quit tobacco use and consider nicotine patch Risks and sequelae of long-term tobacco use discussed with the patient She verbalized understanding Spent 15 minutes --Hypertension/moderate control; Continue current antihypertensives As needed hydralazine -- Dyslipidemia: Continue lipid-lowering medication, Low-cholesterol diet --Moderate protein calorie malnutrition/hypoalbuminemia Patient's albumin is 3.2, supportive care, nutrition consult --Morbid obesity BMI 44.1; Patient needs lifestyle changes, Dietary modification, exercise as tolerated and weight reduction Patient will benefit from outpatient bariatric surgical evaluation for weight reduction program when medically stable --Full CODE STATUS --DVT/GI prophylaxis Heparin 5000 units subcu every 12 hours Pepcid 20 mg p.o. twice daily --Advance care planning +30 minutes; -Discussed with patient her condition, I discussed the tests and reports -Discussed with the patient treatment plan, smoking cessation and weight red uction. 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 Patient verbalized understanding, and agreed to cooperate -- Preventive health care counseling +32 minutes Smoking cessation counseling, advised nicotine patch Discussed sequelae of long-term tobacco use explained to the patient She had many questions answered all of them 01/08/2022; continue current management Wean oxygen as tolerated, home O2 evaluation Smoking cessation counseling done Possible discharge in 1 to 2 days if stable 01/09/22: Cont to have wheezes, O2 sat drops on ambulation to 87% - need home O2 on discharge, possible dc in the am Subjective Date of service: 01/09/22 Interval history: I have seen and examined the patient at the bedside Patient's chart and medications reviewed No new events reported by the nursing Patient still has mild shortness of breath Vital signs noted O2 sat drops to 87% on ambulation Objective - Exam Narrative Exam: General appearance: Present: mild distress (Morbidly obese), well-nourished, obese (Morbidly obese) - EENT Eyes: Present: PERRL, EOM intact - Neck Neck: Present: supple, normal ROM - Respiratory Respiratory effort: normal Respiratory: bilateral: diminished, rhonchi, negative: rales, wheezing - Cardiovascular Rhythm: regular Heart Sounds: Present: S1 & S2 - Extremities Extremities: no ischemia, No edema - Abdominal General gastrointestinal: soft, non-tender, non-distended, normal bowel sounds - Integumentary Integumentary: Present: clear, warm - Psychiatric Psychiatric: appropriate mood/affect, cooperative - Neurologic Neurologic: CNII-XII intact, moves all extremities - Constitutional Vitals: Vital Signs - 12hr 01/09/22 01/09/22 01/09/22 00:17 04:58 07:53 Temperature 98.0 F Pulse Rate 92 H Pulse Rate [ Anterior Bilateral Throughout] Respiratory 20 20 Rate Respiratory Rate [Anterior Bilateral Throughout] Blood Pressure 147/59 O2 Sat by Pulse 96 91 97 Oximetry 01/09/22 07:54 Temperature Pulse Rate Pulse Rate [ 83 Anterior Bilateral Throughout] Respiratory Rate Respiratory 18 Rate [Anterior Bilateral Throughout] Blood Pressure O2 Sat by Pulse Oximetry - Labs CBC & Chem 7: 01/09/22 04:00 01/09/22 04:00 Labs: Abnormal lab results 01/09/22 01/09/22 Range/Units 04:00 04:00 WBC 14.5 H (4.5-11.0) K/mm3 MCH 24 L (28-32) pg RDW 18.4 H (13.2-15.2) % Lymph % (Auto) 6.5 L (13.4-35.0) % Lymph # (Auto) 0.9 L (1.2-5.4) K/mm3 Bowman # (Auto) 1.0 H (0.0-0.8) K/mm3 Seg Neutrophils % 86.3 H (40.0-70.0) % Seg Neutrophils # 12.5 H (1.8-7.7) K/mm3 Sodium 132 L D (137-145) mmol/L Chloride 86.5 L (98-107) mmol/L Carbon Dioxide 32 H D (22-30) mmol/L BUN 32 H (7-17) mg/dL Creatinine 1.4 H D (0.6-1.2) mg/dL Glucose 425 H (65-100) mg/dL HEART Score - HEART Score Troponin: Troponin T < 0.010 ng/mL (0.00-0.029) 01/05/22 20:34
[2022-01-09] MEDS: cefTRIAXone/NS 2 GM/100 ML 2 GM/100 ML BAG IV SCH (10:51)
[2022-01-09] MEDS: traMADol 50 MG TAB PO PRN (10:56)
[2022-01-10] MEDS: MORPHINE 2 MG/1 ML INJ IV PRN ×2 (01:00→08:47)
[2022-01-10] MEDS: methylPREDNISolone Sod Succinate 40 MG/1 ML INJ IV SCH ×2 (05:07→13:10)
[2022-01-10] MEDS: BENZONATATE 100 MG CAP PO SCH ×2 (05:07→13:10)
[2022-01-10 05:43] VITALS: BP 176/78
[2022-01-10] MEDS: ARFORMOTEROL 15 MCG/2 ML NEBU IH SCH (08:49)
[2022-01-10] MEDS: BUDESONIDE 0.5 MG/2 ML NEBU IH SCH (08:49)
[2022-01-10] MEDS: IPRATROPIUM/ALBUTEROL SULFATE 3 ML AMPUL.NEB IH SCH ×2 (08:49→13:05)
[2022-01-10] MEDS: FUROSEMIDE 40 MG/4 ML INJ IV SCH (09:04)
[2022-01-10] MEDS: CETIRIZINE 10 MG TAB PO SCH (09:04)
[2022-01-10] MEDS: HEPARIN 5,000 UNIT/1 ML VIAL SUB-Q SCH (09:04)
[2022-01-10] MEDS: FAMOTIDINE 20 MG TAB PO SCH (09:05)
[2022-01-10] MEDS: NICOTINE 21 MG/24 HR PATCH TD SCH (09:05)
[2022-01-10] MEDS: hydroCHLOROthiazide 25 MG TAB PO SCH (09:05)
[2022-01-10] MEDS: FLUTICASONE PROPIONATE NASAL SPRAY 16 GM NS SCH (09:05)
--- NOTE | 2022-01-10 13:56 | Discharge Summary ---
Providers - Providers Date of Admission: 01/06/22 02:16 Date of discharge: 01/10/22 Attending physician: REEMA CAPONE Primary care physician: NESTOR GALINDO NP Hospitalization Condition: Serious Hospital course: 56 y/o AAF with SOB: A/P --Acute exacerbation of chronic obstructive pulmonary disease Oxygen by nasal cannula 3 L/min. Titrate O2 sats to more than 90% Nebulizers, IV steroids, IV antibiotics, inhalation steroids, home O2 evaluation prior to discharge Pulmonary consult if needed --Acute hypoxic respiratory failure/ requiring supplemental oxygen; present on admission in ED patient's O2 sat was 88% room air improved to 93 to 96% on 2 to 3 L of supplemental oxygen Secondary to acute COPD exacerbation, bilateral pneumonia as well as obesity hypoventilation syndrome Supplemental oxygen, titrate O2 sats to more than 90%, treat the underlying cause --Bilateral pneumonia community-acquired, present on admission Rocephin 2 g IV daily. Zithromax 500 mg p.o. daily. Blood cultures sputum culture. Recheck CBC BMP in the morning Chest x-ray airspace opacities in bilateral lobes suggesting infectious process --Obesity hypoventilation syndrome; Oxygen titrate O2 sats to more than 90%, BiPAP as needed Patient needs outpatient sleep studies to rule out obstructive sleep apnea And for the need of CPAP/BiPAP at night --High suspicion for COVID/PUI Contact and droplet isolation, oxygen nasal cannula, henriquez PCR test -- Ongoing tobacco abuse Smoking cessation counseling Advised nicotine patch as needed Counseled and strongly advised to quit tobacco use and consider nicotine patch Risks and sequelae of long-term tobacco use discussed with the patient She verbalized understanding Spent 15 minutes --Hypertension/moderate control; Continue current antihypertensives As needed hydralazine -- Dyslipidemia: Continue lipid-lowering medication, Low-cholesterol diet --Moderate protein calorie malnutrition/hypoalbuminemia Patient's albumin is 3.2, supportive care, nutrition consult --Morbid obesity BMI 44.1; Patient needs lifestyle changes, Dietary modification, exercise as tolerated and weight reduction Patient will benefit from outpatient bariatric surgical evaluation for weight reduction program when medically stable --Full CODE STATUS --DVT/GI prophylaxis Heparin 5000 units subcu every 12 hours Pepcid 20 mg p.o. twice daily --Advance care planning +30 minutes; -Discussed with patient her condition, I discussed the tests and reports -Discussed with the patient treatment plan, smoking cessation and weight reduction. 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 Patient verbalized understanding, and agreed to cooperate -- Preventive health care counseling +32 minutes Smoking cessation counseling, advised nicotine patch Discussed sequelae of long-term tobacco use explained to the patient She had many questions answered all of them 01/08/2022; continue current management Wean oxygen as tolerated, home O2 evaluation Smoking cessation counseling done Possible discharge in 1 to 2 days if stable 01/09/22: Cont to have wheezes, O2 sat drops on ambulation to 87% - need home O2 on discharge, possible dc in the am Disposition: 30 STILL A PATIENT Final Discharge Diagnosis (Prints w/discharge instructions): -- Bilateral pneumonia. -- COPD exacerbation. -- Tobacco abuse. -- Morbid obesity. -- Acute hypoxic respiratory failure due to COPD exacerbation and underlying obesity hypoventilation syndrome Time spent for discharge: 34 minutes Exam - Constitutional Vitals: Temp Pulse Resp BP Pulse Ox 97.8 F 87 20 176/78 95 01/10/22 05:13 01/10/22 13:05 01/10/22 13:05 01/10/22 05:13 01/10/22 08:53 Plan Activity: advance as tolerated Weight Bearing Status: Weight Bear as Tolerated Diet: low fat, low salt Follow up with: NESTOR GALINDO NP [Primary Care Provider] - 7 Days Prescriptions: levoFLOXacin [Levaquin] 750 mg PO QDAY #4 tablet ALBUTEROL NEB's [Proventil 0.083% NEBS] 2.5 mg IH Q4HRT PRN #30 nebu PRN Reason: Shortness Of Breath Budesonide/Formoterol Fumarate [Symbicort 160-4.5 Mcg Inhaler] 10.2 gm IH BID #1
== END 2022-01-10 16:55 | disposition home or self-care (01) | DRG 189 ==
LOC: ED 19:32 → 3A 01-06 02:16
PROVIDERS: ADMIT Hospitalist; ATTEND Internal Medicine
DX: J96.01 Acute respiratory failure with hypoxia (principal); J18.9 Pneumonia, unspecified organism; J44.1 Chronic obstructive pulmonary disease with (acute) exacerbation; Z20.822 Contact with and (suspected) exposure to COVID-19; E66.2 Morbid (severe) obesity with alveolar hypoventilation; Z68.41 Body mass index [BMI] 40.0-44.9, adult; E44.0 Moderate protein-calorie malnutrition; F17.200 Nicotine dependence, unspecified, uncomplicated; M19.90 Unspecified osteoarthritis, unspecified site; G43.909 Migraine, unspecified, not intractable, without status migrainosus; E78.00 Pure hypercholesterolemia, unspecified; J44.0 Chronic obstructive pulmonary disease with (acute) lower respiratory infection; E78.5 Hyperlipidemia, unspecified; Z71.6 Tobacco abuse counseling; Z98.51 Tubal ligation status; Z82.49 Family history of ischemic heart disease and other diseases of the circulatory system
CPT/HCPCS: 36415; 71045; 80048; 80053; 82550; 83735; 83880; 84484; 85007; 85025; 85610; 87040; 93005; 94640; 94760; G0378; J3490; J0456; J0696; J1644; J1940; J2270; J2920; U0003